=== PATIENT | male | born 1970 | race Caucasian/White ===

== ENCOUNTER 2021-06-03 23:00 | Inpatient (IN) | payer BC, SELFPAY ==
[2021-06-03 23:24] VITALS: BP 155/91; PULSE 89; RESP 22; TEMP 36.3; O2SAT 97; BMI 23.3
[2021-06-04] VITALS (26 sets, daily range): BP systolic 96–143; BP diastolic 62–90; PULSE 70–95; RESP 16–20; TEMP 36.2–37.5; O2SAT 91–100
--- NOTE | 2021-06-04 | XR_ITS ---
WS: [id number] Exam: XR hip RT 2-3V wo/w pel* [id number] Date/Time of Exam: 06/04/2021 12:00 AM Reason For Exam: FX/Right hip nail/BESS IMAGES Comparison 06/04/2021. Intraoperative AP and lateral C-arm images of the right hip are submitted for evaluation. There is internal orthopedic fixation of a comminuted intertrochanteric fracture of the right hip wit h an intramedullary haroldo and compression screw. The fracture is stabilized in satisfactory position fo r healing. XR/XR hip RT 2-3V wo/w pel* [id number] IMPRESSION: 1. Satisfactory internal orthopedic fixation involving an intertrochanteric fra cture of the right hip.
--- NOTE | 2021-06-04 | SCC_ITS ---
Procedure done: Right hip nail 58.0 seconds of fluoroscopic guidance, for a cumulative dose of 4.55 mGy, was provided to Dr. Ramos by the radiology department. C-arm images of the right hip were saved for the patient's permanent record. [facility]
--- NOTE | 2021-06-04 01:24 | XRR_ITS ---
PROCEDURE INFORMATION: Exam: XR Right Hip Exam date and time: 06/04/2021 1:35 AM Age: 50 years old Clinical indication: Injury or trauma; Fall; Blunt trauma (contusions or hematomas); Right; Patient HX: Patient fell last night. C/O extreme RT hip pain. ; Additional info: Fall R hip pain TECHNIQUE: Imaging protocol: XR Right hip. Views: 1 view hip with pelvis when performed. COMPARISON: No relevant prior studies available. FINDINGS: Bones/joints: Comminuted intertrochanteric fracture right hip. Soft tissues: Unremarkable. XR/XR hip RT 2-3V wo/w pel* [id number] IMPRESSION: Comminuted intertrochanteric fracture right hip.
[2021-06-04] MEDS: morphine 4 mg/mL SDV 1 mL IVP (01:39)
[2021-06-04] MEDS: ondansetron 2 mg/ML SDV 2 mL 4 MG IVP (01:39)
--- NOTE | 2021-06-04 02:03 | XRR_ITS ---
PROCEDURE INFORMATION: Exam: XR Chest Exam date and time: 06/04/2021 2:53 AM Age: 50 years old Clinical indication: Shortness of breath; Patient HX: SOB. Hypoxic on monitor. ; Additional info: R hip fracture TECHNIQUE: Imaging protocol: XR of the chest. Views: 1 view. COMPARISON: No relevant prior studies available. FINDINGS: Lungs: Poor inspiratory effort with some crowding of pulmonary markings and possible accentuation of the apparent heart size. Mild peribronchial thickening and/or mild perihilar linear markings consistent with bronchitis and/or viral pneumonitis and/or reactive airway disease and/or atypical pulmonary interstitial edema. Pleural spaces: Unremarkable. No pleural effusion. No pneumothorax. Heart/Mediastinum: See Lungs finding. Bones/joints: Unremarkable. Other findings: Patient rotation to the left. XR/XR chest 1V portable [id number] IMPRESSION: 1. Poor inspiratory effort with some crowding of pulmonary markings and possible accentuation of the apparent heart size. 2. Mild peribronchial thickening and/or mild perihilar linear markings consistent with bronchitis and/or viral pneumonitis and/or reactive airway disease and/or atypical pulmonary interstitial edema.
--- NOTE | 2021-06-04 02:05 | ECG_ITS ---
[facility] Test Date: 2021-06-04 Pat Name: Keron Carter Department: Room: Gender: Male Quality Head: : 1970 Requested By: Andreas Allen Order Number: [id number] Shakila MD: Terry Prince M.D. Measurements Intervals [place] Rate: 81 P: 51 NC: 133 QRS: 35 QRSD: 108 T: -58 QT: 346 QTc: 403 Interpretive Statements SINUS RHYTHM [address] DEVIATION AND MODERATE T-WAVE ABNORMALITY, CONSIDER LATERAL ISCHEMIA [-0.1+ mV T-WAVE IN I/aVL/V5/V6] ST DEVIATION AND MODERATE T-WAVE ABNORMALITY, CONSIDER INFERIOR ISCHEMIA [-0.1+ mV T-WAVE IN II/aVF] No previous ECG available for comparison Electronically Signed On 06-04-2021 9:05:31 CDT by Terry Prince M.D. [email or web address]
[2021-06-04 02:17] LABS: Basophils # 0.1 10^3/uL (0.0-0.1); Basophils % 0.4 %; Eosinophils % 0.1 %; Hematocrit 44.3 % (42.0-52.0); Hemoglobin 15.2 g/dL (11.7-16.6); Lymphocytes # 1.3 10^3/uL (0.8-4.8); Lymphocytes % 5.5 %; Mean Corpuscular HGB Conc 34.3 g/dL (30.0-36.0); Mean Corpuscular Hemoglobin 29.6 pg (28.0-34.0); Mean Corpuscular Volume 86.2 fl (80-94); Mean Platelet Volume 10.6 fL (7.4-10.4); Monocytes # 1.2 10^3/uL (0.2-0.9); Monocytes % 5.3 %; Neutrophils # 20.76 10^3/uL (1.8-7.7); Nucleated Red Blood Cells % 0 %; Platelet Count 328 10^3/cmm (130-400); Red Blood Count 5.14 10^6/uL (4.1-5.3); White Blood Count 23.6 10^3/uL (4.0-10.0)
[2021-06-04 02:27] LABS: Alanine Aminotransferase 24 U/L (0-41); Albumin Level 4.8 g/dL (3.5-5.2); Alkaline Phosphatase 90 IU/L (40-130); Anion Gap 15.2 (5-19); Aspartate Amino Transferase 20 U/L (0-40); Blood Urea Nitrogen 14 mg/dL (6-20); Calcium 9.6 mg/dL (8.5-10.5); Carbon Dioxide 26 mmol/L (22-29); Chloride 101 mmol/L (98-107); Globulin 2.7 g/dL (1.3-4.6); Glomerular Filtration Rate 176.7 mL/min (90-130); Glucose 151 mg/dL (65-115); Osmolality Calculated 289 mOsm/kg (285-295); Potassium 4.2 mmol/L (3.5-5.1); Sodium 138 mmol/L (136-145); Total Bilirubin 0.4 mg/dL (0.15-1.2); Total Protein 7.5 g/dL (6.6-8.7)
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
[2021-06-04] MEDS: HYDROmorphone 1 mg/mL INJ 1 mL IVP ×3 (03:10→07:47)
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
[2021-06-04] MEDS: pantoprazole 40 mg SDV IVP (05:05)
[2021-06-04] MEDS: dextrose 5%-sod chloride 0.9% 1,000 ML 75 ML IV ×2 (05:05→22:57)
[2021-06-04 06:17] LABS: Estmated Average Glucose 103; Hemoglobin A1C 5.2 % (4.0-6.0)
[2021-06-04 07:47] LABS: 25 Hydroxy Vitamin D 26 ng/mL (30-100); Chol HDL Ratio 3.22 mg/dL (1.0-5.00); Cholesterol 174 mg/dL (0-200); HDL Cholesterol 54 mg/dL (60-100); LDL Cholesterol Calculated 96 mg/dL (50-129); LDL HDL Ratio 1.78 RATIO (0.00-3.22); Thyroid Stimulating Hormone 1.09 uIU/mL (0.27-4.20); Triglycerides 121 mg/dL (0-150)
--- NOTE | 2021-06-04 07:55 | P.CONIM_ITS ---
Documented by User: Wayne Duque PA-C 06/04/21 08:02 Providers/Reason For Consult Consulting Physician/Specialty*: Orthopedics Reason for Consult*: Right hip pain Attending Physician: Wesley Demarco MD History of Present Illness History of Present Illness Keron Carter is a 50 year old male presents to [facility] emergency room following a fall while taking care of his vacation home. He has been dealing with Quentin Jay for the last 9 months he ambulates with a cane. States he lost his balance fell on the right hip with immediate pain and inability to move without severe sharp stabbing pain. Rest is given him some temporary relief although spasm of the muscles grade intense pain. He denies any loss of consciousness in the fall. Pain is localized to the right hip. Denies any neck or back pain. An extensive review of the patient's past medical history, surgical history, allergies, medications, family history, social history, and review of systems was completed Review of Systems Const: Denies: fever(s) Eyes: Denies: change in vision ENMT: Denies: nasal congestion Resp: Denies: dyspnea GI: Denies: abdominal pain : Denies: flank pain Musc: Denies: neck pain or back pain Neuro: Denies: dizziness Medications/Allergies Home Medications Medication Instructions Recorded Confirmed Last Taken Type verapamil 80 mg tablet 80 mg PO BID 06/04/21 06/04/21 Unknown History Allergies Allergy/AdvReac Type Severity Reaction Status Date / Time codeine Allergy ADR-Itching Verified 06/04/21 04:16 milk Allergy ALGY-Anaphy Verified 06/04/21 04:16 laxis Milk Containing Products Allergy ALGY-Anaphy Verified 06/04/21 04:16 laxis peanut Allergy ALGY-Anaphy Verified 06/04/21 04:16 laxis shellfish derived Allergy ALGY-Anaphy Verified 06/04/21 04:16 laxis tomato Allergy ALGY-Anaphy Verified 06/04/21 04:16 laxis whey Allergy ALGY-Anaphy Verified 06/04/21 04:16 laxis Current Medications Generic Name Dose Route Start Last Admin Trade Name Freq PRN Reason Stop Dose Admin Hydromorphone HCl 1 mg 06/04/21 04:16 06/04/21 07:47 Hydromorphone 1 Mg/Ml Inj 1 Ml IVP 1 mg Q2H PRN Administration PAIN Dextrose/Sodium Chloride 1,000 mls @ 75 mls/hr 06/04/21 04:16 06/04/21 05:05 Dextrose 5%-Sod Chloride 0.9% IV 75 mls/hr .[id number] ROSIE Administration Pantoprazole Sodium 40 mg 06/04/21 04:16 06/04/21 05:05 Pantoprazole 40 Mg Sdv IVP 40 mg Q24H ROSIE Administration PFSH Acute PFSH: Medical History (Updated 06/04/21 @ 08:02 by Wayne Duque PA-C) Guillain Rubio? syndrome Surgical History (Updated 06/04/21 @ 03:23 by Richard Hagen MD) No pertinent past surgical history Social History (Updated 06/04/21 @ 03:23 by Richard Hagen MD) Smoking and tobacco status: never smoked Alcohol intake: never Substance/Drug Use: never Vitals/I&O/Wt Last Vital Signs Temp 98.0 F 06/04/21 04:33 Pulse 95 06/04/21 06:00 Resp 16 06/04/21 05:03 BP 133/90 06/04/21 04:33 Pulse Ox 91 06/04/21 04:33 06/03/21 06/04/21 06/04/21 22:59 06:59 14:59 Output Total 450 / 450 Balance -450 / -450 Weight last 48 hrs Weight 145 lb Physical Exam Narrative: Patient is alert and orient x3 has good general appearance normal normal affect. Pain with palpation over the right hip. He has positive logroll on the right negative on the left. His movement of both lower extremities has been reduced due to Guillain-Rubio?. Toes are warm with good capillary refill. Dorsalis pedis and posterior tibial pulses are palpable. HENMT: COMMON NORMALS: normocephalic and atraumatic HEAD & SCALP: normocephalic and atraumatic Resp: COMMON NORMALS: normal respiratory effort Cardio: COMMON NORMALS: regular rate and regular rhythm RATE: regular rate RHYTHM: regular rhythm GI: COMMON NORMALS: non-tender : COMMON NORMALS: Yes no CVA tenderness BLADDER/KIDNEY EXAM: Yes no CVA tenderness Back/Pelvis: COMMON NORMALS: no CVA tenderness Psych: COMMON NORMALS: cooperative Data : 06/04/21 01:33 06/04/21 01:33 A&P Assessment and plan (1) Intertrochanteric fracture of right hip: Discussed open reduction internal fixation of the right hip. Discussed the risks and benefits of the procedure with him. Discussed with Dr. Ramos agrees above-stated plan. Status: Acute (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 syndrome G61.0
[2021-06-04] MEDS: sodium chloride 0.9% 1,000 ML 30 ML IV (08:56)
--- NOTE | 2021-06-04 08:57 | P.ANESASSM_ITS ---
Pre-Anesthetic Assessment Height/Weight: Height 1.68 m Weight 65.771 kg Temp Pulse Resp BP Pulse Ox 98.0 F 95 16 133/90 91 06/04/21 04:33 06/04/21 06:00 06/04/21 05:03 06/04/21 04:33 06/04/21 04:33 Operation Date: 06/04/21 10:10 Proposed Procedures p Trochanteric Femoral Nail(Right) - Coy H Rachel, DO Familial anesthetic complications: None Was Beta Faisal taken within 24 hours: N/A Was Clonidine taken within 24 hours: N/A Social No alcohol and No tobacco Exam alert, oriented x 3, clear to auscultation bilaterally and regular rate & rhythm Airway Submandibular: within normal limits Cervical ROM: within normal limits Mallampati: Class II Dentition: chipped CV/HEM Hypertension Neuropsych Neuropathy Guillain [place] Anesthetic Plan ASA status: 3 Anesthesia: Regional (specify below) (SAB) Risk of > 500 ml blood loss (7ml/kg in children): No Medications/Allergies Home Medications Medication Instructions Recorded Confirmed Last Taken Type verapamil 80 mg tablet 80 mg PO BID 06/04/21 06/04/21 Unknown History Allergies Allergy/AdvReac Type Severity Reaction Status Date / Time codeine Allergy ADR-Itching Verified 06/04/21 04:16 milk Allergy ALGY-Anaphy Verified 06/04/21 04:16 laxis Milk Containing Products Allergy ALGY-Anaphy Verified 06/04/21 04:16 laxis peanut Allergy ALGY-Anaphy Verified 06/04/21 04:16 laxis shellfish derived Allergy ALGY-Anaphy Verified 06/04/21 04:16 laxis tomato Allergy ALGY-Anaphy Verified 06/04/21 04:16 laxis whey Allergy ALGY-Anaphy Verified 06/04/21 04:16 laxis Current Medications Generic Name Dose Route Start Last Admin Trade Name Freq PRN Reason Stop Dose Admin Hydromorphone HCl 1 mg 06/04/21 04:16 06/04/21 07:47 Hydromorphone 1 Mg/Ml Inj 1 Ml IVP 1 mg Q2H PRN Administration PAIN Dextrose/Sodium Chloride 1,000 mls @ 75 mls/hr 06/04/21 04:16 06/04/21 05:05 Dextrose 5%-Sod Chloride 0.9% IV 75 mls/hr .[id number] ROSIE Administration Sodium Chloride 1,000 mls @ 30 mls/hr 06/04/21 08:45 06/04/21 08:56 Sodium Chloride 0.9% IV 06/05/21 08:44 30 mls/hr .Q24H ROSIE Administration Pantoprazole Sodium 40 mg 06/04/21 04:16 06/04/21 05:05 Pantoprazole 40 Mg Sdv IVP 40 mg Q24H ROSIE Administration PFSH Anesthesia Medical History (Updated 06/04/21 @ 08:02 by Wayne Duque PA-C) Guillain Rubio? syndrome Surgical History (Updated 06/04/21 @ 03:23 by Richard Hagen MD) No pertinent past surgical history Social History (Updated 06/04/21 @ 03:23 by Richard Hagen MD) Smoking and tobacco status: never smoked Alcohol intake: never Substance/Drug Use: never Data Anesthesia : 06/04/21 01:33 06/04/21 01:33 Short CBC 06/04/21 Range/Units 01:33 WBC 23.6 H (4.0-10.0) 10^3/uL Hgb 15.2 (11.7-16.6) g/dL Hct 44.3 (42.0-52.0) % MCV 86.2 (80-94) fl Plt Count 328 (130-400) 10^3/cmm Neut % (Auto) 88.0 % Neut # (Auto) 20.76 H (1.8-7.7) 10^3/uL BMP 06/04/21 01:33 Sodium 138 Potassium 4.2 Chloride 101 Carbon Dioxide 26 BUN 14 Creatinine 0.5 L Glucose 151 H Calcium 9.6 Liver Function 06/04/21 Range/Units 01:33 Total Bilirubin 0.4 (0.15-1.2) mg/dL AST 20 (0-40) U/L ALT 24 (0-41) U/L Alkaline Phosphatase 90 (40-130) IU/L Albumin 4.8 (3.5-5.2) g/dL Cardiac Studies: No Data to Display
--- NOTE | 2021-06-04 11:11 | PM.OP ---
Operative Report Date of procedure: June 04, 2021 Pre-op diagnosis: Right intertrochanteric hip fracture Post-op diagnosis: same Procedure done: Right hip nail Surgeon: Coy Ramos Agricultural Engineering Technologist: Wayne Duque Estimated blood loss (mL): 100 Procedure: Right hip nail Patient is brought to the operative suite after undergoing anesthesia with a spinal. He was positioned on the fracture table. All areas impingement well-padded. Traction was applied through the [place] table. AP lateral fluoroscopy ensured the fracture was adequately reduced. Patient was then prepped and draped in normal sterile fashion. Skin incision is made proximal to greater trochanter. Starting pin was inserted. Opening reamer was inserted. A size 10 nail was inserted. 25 degree angle. The wire was inserted followed by the reamer followed by the screw. The locking cap was placed proximally. Then the distal locking screw was placed. The distal locking screw was a 35. In the lag screw was a 95. AP lateral fluoroscopy ensured that the fracture and hardware improved position. Wound was irrigated and closed with Vicryl and suni. Sterile dressings were applied and patient was transferred to the PACU in stable condition.
--- NOTE | 2021-06-04 11:49 | ANE.PACU2 ---
Inpatient post-anesthesia follow up: Airway intact: Yes Vital signs: Temperature 97.5 F Pulse Rate 70 Respiratory Rate 18 Blood Pressure 108/72 Pulse Oximetry 98 Oxygen Delivery Me thod Room Air Oxygen Flow Rate 6 Fraction of Inspir ed Oxygen Hydration adequate: Yes Nausea and vomiting: No Pain level: 1 Mental status: Baseline
--- NOTE | 2021-06-04 11:51 | PC.CHAP ---
Pastoral Care Encounter/Spiritual Assessment Type of Contact [] Declined retail director visit [] Patient/Family/Request visit [] Outpatient visit [] Follow-up visit [] Physician referral [] Code/Alert [X] Routine visit [] Staff referral [] Actively dying [] Patient sleeping [] Family support [] [X] Out of room [] Palliative care [] [] Receiving care in room [] Pre-surgical visit [] Trauma [] Long length of stay [] ICU visit [] Other: Relational/Emotional Strength [] Patient feels connected with others/family/visitors/staff [] Distress [] Loneliness/isolation [] Abandonment Spirituality of Patient [] Person of Liliya [] Attends Mandaeism of their Liliya [] Believes in Prayer [] Reads Bible or Baptist materials [] There are Spiritual issues to be addressed Bulb Weeder Interventions [] Prayer [] Active listening [] Non-anxious presence [] Spiritual/emotional support [] Crisis/trauma care [] Spiritual counseling [] Bereavement support [] Provided bereavement packet [] Provided Bible/devotional materials [] Provided toy/stuffed animal, coloring book to patient or family member [] Provided Communion [] Anointing/[place] [] Salvation [] Completed spiritual assessment [] Other: Impact on Illness or Injury [] Angry [] Fearful [] Anxious [] Often cries [] Exhaustion [] Unable to work [] Unable to attend gnosticist [] Unable to walk/stand [] Unable to read [] Unable to drive [] Unable to eat/drink [] Unable to sleep [] Unable to be with family [] Patient intubated [] Other: Summary Time spent with patient
[2021-06-04] MEDS: HYDROcodone-acetaminophen 5-325 mg Tablet PO ×2 (13:32→20:25)
[2021-06-04] MEDS: cyclobenzaprine 10 mg Tablet 5 MG PO ×2 (14:58→20:24)
[2021-06-04] MEDS: HYDROcodone-acetaminophen 10-325 mg Tablet 2 TAB PO (16:12)
[2021-06-04] MEDS: docusate sodium 100 mg Capsule PO (18:13)
[2021-06-04] MEDS: enoxaparin 40 mg/0.4 mL Syringe SUBCUT (22:57)
[2021-06-05] VITALS (10 sets, daily range): BP systolic 127–143; BP diastolic 79–93; PULSE 80–104; RESP 16–20; TEMP 36.8–37.1; O2SAT 91–96
[2021-06-05] MEDS: HYDROcodone-acetaminophen 5-325 mg Tablet PO ×6 (00:09→21:56)
[2021-06-05] MEDS: pantoprazole 40 mg SDV IVP (05:03)
[2021-06-05 05:05] LABS: Basophils # 0.1 10^3/uL (0.0-0.1); Basophils % 0.6 %; Eosinophils # 0.1 10^3/uL (0.0-0.8); Eosinophils % 1.2 %; Hematocrit 38.8 % (42.0-52.0); Lymphocytes # 1.9 10^3/uL (0.8-4.8); Mean Corpuscular HGB Conc 33.5 g/dL (30.0-36.0); Mean Corpuscular Hemoglobin 29.3 pg (28.0-34.0); Mean Corpuscular Volume 87.6 fl (80-94); Mean Platelet Volume 10.4 fL (7.4-10.4); Monocytes # 1.3 10^3/uL (0.2-0.9); Monocytes % 10.5 %; Neutrophils # 8.44 10^3/uL (1.8-7.7); Neutrophils % 71.1 %; Nucleated Red Blood Cells % 0 %; Platelet Count 235 10^3/cmm (130-400); Red Blood Count 4.43 10^6/uL (4.1-5.3); Red Cell Distribution Width 13.2 % (12.1-15.1); White Blood Count 11.9 10^3/uL (4.0-10.0)
[2021-06-05 05:28] LABS: Alanine Aminotransferase 18 U/L (0-41); Albumin Level 3.6 g/dL (3.5-5.2); Alkaline Phosphatase 69 IU/L (40-130); Anion Gap 9.8 (5-19); Aspartate Amino Transferase 14 U/L (0-40); Blood Urea Nitrogen 7 mg/dL (6-20); Calcium 8.3 mg/dL (8.5-10.5); Carbon Dioxide 25 mmol/L (22-29); Chloride 107 mmol/L (98-107); Globulin 2.4 g/dL (1.3-4.6); Glomerular Filtration Rate 176.7 mL/min (90-130); Glucose 116 mg/dL (65-115); Osmolality Calculated 285 mOsm/kg (285-295); Phosphorus 2.9 mg/dL (2.5-4.5); Potassium 3.8 mmol/L (3.5-5.1); Sodium 138 mmol/L (136-145); Total Bilirubin 0.8 mg/dL (0.15-1.2)
--- NOTE | 2021-06-05 06:52 | PM.PN ---
Subjective Subjective: POD 1 Patient resting comfortably. Pain controlled with hydrocodone. Physical therapy had evaluated yesterday for gait training to the right lower extremity. Vitals/I&O/Wt Last Vital Signs Temp 98.7 F 06/05/21 04:00 Pulse 80 06/05/21 05:22 Resp 17 06/05/21 04:00 BP 127/79 06/05/21 04:00 Pulse Ox 91 06/05/21 04:00 06/04/21 06/04/21 06/05/21 14:59 22:59 06:59 Intake Total 235 / 235 1580 / 1815 Output Total 100 / 100 525 / 625 950 / 1575 Balance 135 / 135 1055 / 1190 -950 / 240 Weight last 48 hrs Weight 145 lb Physical Exam Narrative: Patient is alert and orient x3 has good general appearance normal normal affect. Hip incision is clean and dry. Decreased motor strength lower extremities from Guillain-Rubio?. Skin is clear warm, feet are warm with good cap refill in all digits. Decreased sensation to light touch was present prior to surgery from Guillain-Rubio?, calves are supple, no medial thigh tenderness, negative Homans' sign. No palpable edema peripherally. Data : 06/05/21 04:52 06/05/21 04:52 A&P Assessment and plan (1) Intertrochanteric fracture of right hip: Weight-bear as tolerated to the right lower extremity. Continue gait training with physical therapy. Downsize the dressing with an island dressing preferably Silverlon. Patient would like to transfer care back to his home with his primary care and suni could be removed in 2 weeks. We will see him back in 4 weeks for new radiographs of the right hip. 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
[2021-06-05] MEDS: HYDROmorphone 1 mg/mL INJ 1 mL 0.4 MG IVP (08:57)
[2021-06-05] MEDS: docusate sodium 100 mg Capsule PO ×2 (08:58→18:12)
--- NOTE | 2021-06-05 10:29 | PM.PN ---
Subjective Subjective: Status post patient Patient was complaining excruciating pain he was out of bed to chair I will give him Dilaudid 0.4 mg IV push Escalate his opioid regimen add bowel regimen He does not want to go to any care home or rehab Plan to continue PT evaluation on daily basis, discharge in next 48 hours to home once ready Vitals/I&O/Wt Last Vital Signs Temp 98.2 F 06/05/21 07:55 Pulse 101 H 06/05/21 07:55 Resp 20 H 06/05/21 08:57 BP 143/93 06/05/21 07:55 Pulse Ox 94 06/05/21 07:55 06/04/21 06/05/21 06/05/21 22:59 06:59 14:59 Intake Total 1580 / 1815 180 / 180 Output Total 525 / 625 950 / 1575 Balance 1055 / 1190 -950 / 240 180 / 180 Weight last 48 hrs Weight 65.771 kg Physical Exam Narrative: Patient was sitting in a chair Complaining of pain in his right leg Euvolemic Nonfocal neuro exam no focal deficit He does have bilateral extremity weakness, right greater than left Resting tremors S1, S2 Nonfocal neuro exam No audible stridor or wheezing Satting well on room air Data : 06/05/21 04:52 06/05/21 04:52 A&P Assessment and plan (1) Intertrochanteric fracture of right hip: Status: Acute (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 (3) Hip fracture, right: Status: Acute Qualifiers: Encounter type: initial encounter Fracture type: closed Qualified Code(s): S72.001A - Fracture of unspecified part of neck of right femur, initial encounter for closed fracture Plan Right hip fracture status post intervention Postop day 1 No postoperative complication Escalate opioids to Dilaudid for now Add bowel regimen Daily PT evaluation Does not want to go to care home or rehab Plan to send him home with home health services He does use a cane for ambulation, a cane for ambulation, might benefit from a walker at this time Will need DVT prophylaxis for at least 2 weeks at the time of discharge DVT prophylaxis at the time of discharge 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
[2021-06-05] MEDS: HYDROmorphone 1 mg/mL INJ 1 mL 0.2 MG IVP (12:52)
[2021-06-05] MEDS: sennosides-docusate Tablet 1 TAB PO (18:12)
[2021-06-05] MEDS: enoxaparin 40 mg/0.4 mL Syringe SUBCUT (21:57)
[2021-06-06] VITALS (9 sets, daily range): BP systolic 123–147; BP diastolic 67–91; PULSE 62–106; RESP 17–18; TEMP 36.3–37.6; O2SAT 95–98
[2021-06-06] MEDS: cyclobenzaprine 10 mg Tablet 5 MG PO ×2 (01:07→21:29)
[2021-06-06] MEDS: HYDROcodone-acetaminophen 5-325 mg Tablet PO ×5 (03:52→21:29)
[2021-06-06] MEDS: pantoprazole 40 mg SDV IVP (03:53)
[2021-06-06 06:20] LABS: Basophils # 0.1 10^3/uL (0.0-0.1); Basophils % 0.6 %; Eosinophils # 0.3 10^3/uL (0.0-0.8); Eosinophils % 1.9 %; Hematocrit 41.3 % (42.0-52.0); Hemoglobin 13.8 g/dL (11.7-16.6); Lymphocytes # 1.4 10^3/uL (0.8-4.8); Lymphocytes % 10.7 %; Mean Corpuscular HGB Conc 33.4 g/dL (30.0-36.0); Mean Corpuscular Hemoglobin 30.3 pg (28.0-34.0); Mean Corpuscular Volume 90.6 fl (80-94); Mean Platelet Volume 10.1 fL (7.4-10.4); Monocytes # 1.3 10^3/uL (0.2-0.9); Monocytes % 9.6 %; Neutrophils # 10.35 10^3/uL (1.8-7.7); Neutrophils % 76.8 %; Nucleated Red Blood Cells % 0 %; Platelet Count 247 10^3/cmm (130-400); Red Blood Count 4.56 10^6/uL (4.1-5.3); Red Cell Distribution Width 13.1 % (12.1-15.1); White Blood Count 13.5 10^3/uL (4.0-10.0)
[2021-06-06 06:29] LABS: Alanine Aminotransferase 20 U/L (0-41); Albumin Level 3.3 g/dL (3.5-5.2); Alkaline Phosphatase 85 IU/L (40-130); Aspartate Amino Transferase 18 U/L (0-40); Blood Urea Nitrogen 7 mg/dL (6-20); Calcium 8.6 mg/dL (8.5-10.5); Carbon Dioxide 26 mmol/L (22-29); Chloride 102 mmol/L (98-107); Globulin 3.5 g/dL (1.3-4.6); Glomerular Filtration Rate 176.7 mL/min (90-130); Glucose 108 mg/dL (65-115); Osmolality Calculated 283 mOsm/kg (285-295); Sodium 137 mmol/L (136-145); Total Bilirubin 0.9 mg/dL (0.15-1.2); Total Protein 6.8 g/dL (6.6-8.7)
--- NOTE | 2021-06-06 07:03 | P.PN_ITS ---
Subjective Subjective: POD 2 Patient reports continued right hip pain. Having difficult time mobilizing with physical therapy due to the pain. Denies any shortness of breath or chest pain. Vitals/I&O/Wt Last Vital Signs Temp 99.6 F 06/06/21 04:00 Pulse 96 06/06/21 06:00 Resp 17 06/06/21 04:00 BP 145/84 06/06/21 04:00 Pulse Ox 97 06/06/21 04:00 06/05/21 06/06/21 06/06/21 22:59 06:59 14:59 Intake Total 240 / 1641.25 Output Total 900 / 1300 1075 / 2375 Balance -660 / 341.25 -1075 / -733.75 Physical Exam Narrative: Patient is alert a nd orient x3 has g ood general appear ance normal normal affect.? Hip inci gifty is clean and dry.? Decreased mo tor strength? lowe r extremities from [facility]?. ? Skin is clear war m, feet are warm w ith good cap refil l in all digits.? Decreased sensatio n to light touch w as present prior t o surgery from [facility]?,? calv es are supple,? no medial thigh tend erness, negative H omans' sign.? No p alpable edema jasper pherally. Data : 06/06/21 05:43 06/06/21 05:43 A&P Assessment and plan (1) Intertrochanteric fracture of right hip: Discussed with the patient that we will have a social service agency director consult for placement. Continue to work with physical therapy. Perform a dressing change today with an island Silverlon dressing. Ready for discharge when placement found. Status: Acute Attestations Medical Necessity Statement*: defer to medical team Coding Level of Care Code Acute Telemetry Monitor for Antonella Pickard Diagnoses Intertrochanteric fracture of right hip S72.141A
[2021-06-06] MEDS: sennosides-docusate Tablet 1 TAB PO ×2 (08:06→17:06)
[2021-06-06] MEDS: docusate sodium 100 mg Capsule PO ×2 (08:06→17:06)
[2021-06-06] MEDS: HYDROmorphone 1 mg/mL INJ 1 mL 0.2 MG IVP (10:27)
--- NOTE | 2021-06-06 11:55 | P.PN_ITS ---
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 Escalate opioids Vitals/I&O/Wt Last Vital Signs Temp 97.4 F L 06/06/21 11:49 Pulse 95 06/06/21 11:49 Resp 18 06/06/21 11:49 BP 147/91 06/06/21 11:49 Pulse Ox 95 06/06/21 11:49 06/05/21 06/06/21 06/06/21 22:59 06:59 14:59 Intake Total 240 / 1641.25 Output Total 900 / 1300 1075 / 2375 600 / 600 Balance -660 / 341.25 -1075 / -733.75 -600 / -600 Physical Exam Narrative: Patient was in distress because of right hip pain Weakness of bilateral lower extremities Nonfocal neuro exam otherwise Resting tremors Saturating well on room air Abdomen soft Looks euvolemic No vascular compromise of right leg noted Data : 06/06/21 05:43 06/06/21 05:43 A&P Assessment and plan (1) Intertrochanteric fracture of right hip: Status: Acute (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 (3) Hip fracture, right: Status: Acute Qualifiers: Encounter type: initial encounter Fracture type: closed Qualified Code(s): S72.001A - Fracture of unspecified part of neck of right femur, initial encounter for closed fracture Plan Today our plan is to escalate opioids to keep his pain under control, add bowel regimen transportation solutions manager updated that patient has requested detention/rehab No postop complications He is afebrile Blood pressure is stable Saturating well on room air Hemoglobin 13 DVT prophylaxis Lovenox 40 mg daily which I will change to 30 mg every 12 hours Attestations Medical Necessity Statement*: Awaiting placement Time Spent in Patient Care: 20mins Coding Level of Care Code Acute Sales Record Clerk for Antonella Pickard Diagnoses Intertrochanteric fracture of right hip 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
--- NOTE | 2021-06-06 12:07 | XR_ITS ---
WS: [id number] Exam: XR hip RT 1V wo/w pel [id number] Date/Time of Exam: 06/06/2021 12:27 PM Reason For Exam: hip Pain # Compared to intraoperative C-arm images 06/04/2021. There is internal orthopedic fixation of an intertrochanteric fracture of the right hip with an intra medullary haroldo and femoral neck screw. Surgical skin clips are noted laterally. Postoperative changes in the adjacent soft tissues. XR/XR hip RT 1V wo/w pel [id number] IMPRESSION: 1. ORIF of an intertrochanteric fracture of the right hip.
[2021-06-06 13:25] LABS: D Dimer 1.63 ug/mIFEU (0-0.59)
[2021-06-07] VITALS (11 sets, daily range): BP systolic 119–147; BP diastolic 79–107; PULSE 75–114; RESP 13–18; TEMP 36.5–37.1; O2SAT 95–98
[2021-06-07] MEDS: HYDROcodone-acetaminophen 5-325 mg Tablet PO ×6 (02:03→23:38)
[2021-06-07] MEDS: pantoprazole 40 mg SDV IVP (05:59)
[2021-06-07 06:18] LABS: Basophils # 0.1 10^3/uL (0.0-0.1); Basophils % 0.7 %; Eosinophils # 0.3 10^3/uL (0.0-0.8); Eosinophils % 2.6 %; Hematocrit 43.3 % (42.0-52.0); Hemoglobin 14.3 g/dL (11.7-16.6); Lymphocytes # 2.2 10^3/uL (0.8-4.8); Lymphocytes % 21.3 %; Mean Corpuscular Volume 87.8 fl (80-94); Monocytes # 1.3 10^3/uL (0.2-0.9); Monocytes % 12.2 %; Neutrophils % 62.5 %; Nucleated Red Blood Cells % 0 %; Platelet Count 294 10^3/cmm (130-400); Red Blood Count 4.93 10^6/uL (4.1-5.3); Red Cell Distribution Width 12.8 % (12.1-15.1); White Blood Count 10.5 10^3/uL (4.0-10.0)
--- NOTE | 2021-06-07 07:20 | USCV_ITS ---
Keron Carter Age: 50 Gender: M : 1970 Exam Date: 06/07/2021 09:26 Ordering Phys: Wesley Demarco MD Technologist: VINCENZO Exam Location: [facility] [place] Indication: BLE SWELLING HISTORY: Lower extremity swelling. PROCEDURES: Venous duplex imaging was performed in bilateral lower extremities. The following venous structures were evaluated: common femoral vein, profunda vein, proximal portion of the greater saphenous vein, superficial femoral vein, and the popliteal vein. In addition, the posterior tibial and peroneal trunk were evaluated. Serial compression, augmentation maneuvers, and spectral Doppler flow evaluation were performed. FINDINGS: Normal 2-D Doppler and augmentation and compressibility throughout the lower extremity venous structures. Additional imaging through the proximal calf veins also reveals no thrombus. Limited evaluation of the greater saphenous vein is patent with no thrombus. CONCLUSIONS No DVT bilateral lower extremities. Dr. Carolyn Rome DO (Electronically Signed) Final Date: 07 June 2021 11:04 S
--- NOTE | 2021-06-07 08:06 | P.PN_ITS ---
Subjective Subjective: POD 3 Patient reports co ntinued right hip pain.? Having diff icult time mobiliz ing with physical therapy due to the pain.? Denies any shortness of malu th or chest pain. Vitals/I&O/Wt Last Vital Signs Temp 97.7 F 06/07/21 04:00 Pulse 99 06/07/21 06:00 Resp 17 06/07/21 04:00 BP 119/79 06/07/21 04:00 Pulse Ox 96 06/07/21 04:00 06/06/21 06/07/21 06/07/21 22:59 06:59 14:59 Intake Total 240 / 240 Output Total 425 / 1025 400 / 1425 Balance -185 / -785 -400 / -1185 Physical Exam Narrative: Patient is alert and orient x3 has good general appearance normal normal affect. Hip incision remains clean and dry. There is no signs of erythema or drainage no signs of infection. Decreased lower extremity motor strength due to Guillain-Rubio?. Skin is clear warm, feet are warm with good cap refill in all digits. Decreasedsensation to light touch. Calves are supple, no medial thigh tenderness, negative Homans' sign. No palpable edema peripherally. Data : 06/07/21 05:45 06/06/21 05:43 A&P Assessment and plan (1) Intertrochanteric fracture of right hip: Continue to mobilize with physical therapy. Continue incentive spirometry for pulmonary toilet. Attempting to manage pain. Ready for discharge home/SNF when patient has better pain control and medically stable. 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
[2021-06-07] MEDS: sennosides-docusate Tablet 1 TAB PO ×2 (09:15→17:07)
[2021-06-07] MEDS: docusate sodium 100 mg Capsule PO ×2 (09:15→17:07)
--- NOTE | 2021-06-07 11:52 | PM.PN ---
Subjective Subjective: D-dimer was high however no signs of DVT on venous Doppler, he is not hypoxic or tachycardic Blood pressure stable, hemoglobin 14.3 He is able to bear weight on his right leg able to use a walker He is hopeful that he might be able to go home if he keeps improving during his hospitalization and avoid rehab Hip x-ray did not show any acute events Vitals/I&O/Wt Last Vital Signs Temp 98.6 F 06/07/21 08:00 Pulse 99 06/07/21 08:00 Resp 15 06/07/21 08:00 BP 130/87 06/07/21 08:00 Pulse Ox 96 06/07/21 08:00 06/06/21 06/07/21 06/07/21 22:59 06:59 14:59 Intake Total 240 / 240 Output Total 425 / 1025 400 / 1425 Balance -185 / -785 -400 / -1185 Physical Exam Narrative: Patient seems to be in less pain as compared to yesterday Able to bear weight on his right leg with the help of a walker he can ambulate Nonfocal neuro exam Looks euvolemic Eating breakfast S1, S2 Mild edema of legs noted Clean dressing no active drainage Data : 06/07/21 05:45 06/06/21 05:43 A&P Assessment and plan (1) Intertrochanteric fracture of right hip: Status: Acute (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 (3) Hip fracture, right: Status: Acute Qualifiers: Encounter type: initial encounter Fracture type: closed Qualified Code(s): S72.001A - Fracture of unspecified part of neck of right femur, initial encounter for closed fracture Plan Right hip fracture status post ORIF Patient has been on opioids, TENs With help of PT, a walker he is able to put some weight on his right leg He is hopeful that next 24 hours he will be able to bear weight on the right leg and might able to go home and avoid rehab inpatient placement in [place] Continue physical therapy for now D-dimer 1.6, no hypoxia or tachycardia, no signs of DVT I pressure will stay low to get CTA chest if needed Continue regular diet Attestations Medical Necessity Statement*: Discharge in next 30 hours Time Spent in Patient Care: 20min Coding Level of Care Code Acute Buyer Internship for Antonella Pickard Diagnoses Intertrochanteric fracture of right hip 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
--- NOTE | 2021-06-07 15:43 | PC.NURSE ---
Patient worked with PT this shift and reported to be doing much better. Worked with PT and did a bed bath. Vitals stable. Pain medications given -every 4 hours, patient rating pain at 7-8. Will continue to monitor and salesperson yard goods report to night nurse.
--- NOTE | 2021-06-07 16:05 | XRR_ITS ---
PROCEDURE INFORMATION: Exam: XR Right Femur Exam date and time: 06/07/2021 4:27 PM Age: 50 years old Clinical indication: Pain; Thigh; Right; Prior surgery; Surgery date: 3-7 days post-operative; Surgery type: RT hip nail; Additional info: Pain, will need to be portable as patient having uncontrolled pain TECHNIQUE: Imaging protocol: XR Right femur. Views: 2 views. COMPARISON: CR XR hip RT 1V wo/w pel [id number] 06/06/2021 12:38 PM FINDINGS: Bones/joints: Recently placed right hip fixation device in expected positioning traversing an intertrochanteric right hip fracture. Soft tissues: Skin suni with gas and swelling along the right hip consistent with recent surgical procedure. XR/XR femur RT min 2V* [id number] IMPRESSION: Recently placed right hip fixation device in expected positioning traversing an intertrochanteric right hip fracture.
[2021-06-07] MEDS: enoxaparin 40 mg/0.4 mL Syringe SUBCUT (17:07)
[2021-06-07] MEDS: cyclobenzaprine 10 mg Tablet 5 MG PO (23:38)
[2021-06-08] VITALS (8 sets, daily range): BP systolic 125–150; BP diastolic 73–115; PULSE 83–118; RESP 13–18; TEMP 36.4–37; O2SAT 94–98
--- NOTE | 2021-06-08 01:07 | PC.NURSE ---
i reported high pulse 105 to nurse
[2021-06-08] MEDS: HYDROcodone-acetaminophen 5-325 mg Tablet PO ×5 (03:24→21:07)
--- NOTE | 2021-06-08 06:49 | PM.PN ---
Subjective Subjective: POD 4 Patient resting comfortably. States the pain is better controlled. Physical therapy worked with him yesterday he felt more stable on his feet. He is not want to go to a rehab facility wants to go home. Vitals/I&O/Wt Last Vital Signs Temp 98 F 06/08/21 04:00 Pulse 83 06/08/21 05:09 Resp 16 06/08/21 04:00 BP 125/91 06/08/21 04:00 Pulse Ox 95 06/08/21 04:00 06/07/21 06/07/21 06/08/21 14:59 22:59 06:59 Intake Total 360 / 360 Output Total 1225 / 1225 600 / 1825 Balance -1225 / -1225 -240 / -1465 Physical Exam Narrative: Patient is alert and orient x3 has good general appearance normal normal affect.? Hip incision remains clean and dry. ? There is no signs of erythema or drainage no signs of infection.? Decreased lower extremity motor strength due to Guillain-Rubio?.? Skin is clear warm, feet are warm with good cap refill in all digits.? Decreasedsensation to light touch.? Calves are supple,? no medial thigh tenderness, negative Homans' sign.? No palpable edema peripherally. Data : 06/07/21 05:45 06/06/21 05:43 A&P Assessment and plan (1) Intertrochanteric fracture of right hip: Radiographs of the right hip shows the hip nail to be in excellent position no loosening of the hardware. All appears in good alignment. There are suni present in the skin. Will work for discharge home today. With home health care as an option for the patient. Have the suni removed in 2 weeks in the office. Have the dressings changed prior to discharge home. Continue incentive spirometry at home. Call if there is problems. Otherwise see him back in the office in 2 weeks for staple removal. 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
--- NOTE | 2021-06-08 07:27 | CT_ITS ---
WS: [id number] CT CHEST ANGIOGRAPHY WITH REFORMATS HISTORY: TACHYCARDIA, dimer high, TECHNIQUE: Contiguous axial images are obtained through the chest during arterial injection of intrav enous contrast. Images are reconstructed to evaluate the pulmonary arteries. MIP imaging also reviewe d. All CT scans at [facility] use at least one of these dose optimization techniques: automat ed exposure control; mA and/or kV adjustment per patient size (includes targeted exams where dose is matched to clinical indication); or iterative reconstruction. CONTRAST: Omnipaque 350; 67 mL IV. DLP: 569.53 mGy.cm COMPARISON: None available. Excellent opacification of the pulmonary arteries. There are no filling defects. Pulmonary artery siz e is normal. Mild atherosclerotic changes within the thoracic aorta. No aneurysm. No dissection. Card iac size is normal. No pericardial or pleural effusions. There is a nodule measuring 7 mm along the inferior LEFT major fissure extending into the LEFT upper lobe. There are additional smaller areas of nodularity along the fissure. This will need to be furthe r evaluated. Subsegmental atelectasis at the RIGHT lung base. No additional nodules are identified. R IGHT suprahilar lymph node measures 11 mm. There are smaller bilateral hilar lymph nodes. Small hiatal hernia. Liver is moderately enlarged. Spleen is normal size at 10.6 cm. No adrenal mass. Pancreas is negative. Slight increase in the thoracic kyphosis. CT/CT angio chest PE protcl [id number] IMPRESSION: 1. No pulmonary embolism. 2. 7 mm pulmonary nodule abuts the inferior LEFT major fissure and extends int o the upper lobe. There are additional smaller benign appearing nodules along t he fissure. The largest 7 mm nodule needs further evaluation. Recommend follow- up chest CT in 3-4 months with IV contrast to document stability. 3. Normal size heart.
[2021-06-08] MEDS: sennosides-docusate Tablet 1 TAB PO ×2 (08:05→17:05)
[2021-06-08] MEDS: docusate sodium 100 mg Capsule PO ×2 (08:06→17:05)
[2021-06-08] MEDS: pantoprazole DR 40 mg Tablet PO (08:06)
[2021-06-08] MEDS: iohexol 350 mg/mL 100 mL Btl IV (08:31)
--- NOTE | 2021-06-08 08:55 | PM.PN ---
Subjective Subjective: This morning patient was able to get out of bed and sit in a wheelchair with the help of walker, I requested CTA chest to rule out PE he has been sinus tachycardic, considering high D-dimer I would like to rule out PE, I have notified his was upset because he received dinner tray with chicken which had a lot of cream and he has milk allergies, I have escalated this matter to informed charge nurse, nurse toy parts former supervisor and involve dietitian's the first time I am hearing about his dietary restrictions, patient himself and then will complain about food, there has been multiple meetings with the dietitian however diet order was not changed, today I have changed his diet order to lactose-free/lactose intolerant diet His will not be able to drive today because of bad weather conditions, plan to discharge him tomorrow home he does have wheelchair, a walker, he will need outpatient PT prescription with [facility] Vitals/I&O/Wt Last Vital Signs Temp 97.6 F 06/08/21 07:16 Pulse 107 H 06/08/21 07:16 Resp 13 06/08/21 07:16 BP 141/73 06/08/21 07:16 Pulse Ox 95 06/08/21 07:16 06/07/21 06/08/21 06/08/21 22:59 06:59 14:59 Intake Total 360 / 360 Output Total 1225 / 1225 600 / 1825 Balance -1225 / -1225 -240 / -1465 Physical Exam Narrative: Resting tremors, patient appears anxious Euvolemic Sinus tachycardia noted Mild swelling of right foot noted Dressing has been changed twice daily basis, at the time of evaluation it is not soaked with blood anymore Mild edema around surgical site EOMI, PERRLA No new focal deficits Abdomen is soft When he tries to ambulate he is able to do so however with difficulty and a lot of facial grimacing Data : 06/07/21 05:45 06/06/21 05:43 A&P Assessment and plan (1) Intertrochanteric fracture of right hip: Status: Acute (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 (3) Hip fracture, right: Status: Acute Qualifiers: Encounter type: initial encounter Fracture type: closed Qualified Code(s): S72.001A - Fracture of unspecified part of neck of right femur, initial encounter for closed fracture (4) Right leg swelling: Status: Acute (5) Sinus tachycardia: Status: Acute Plan Rt Hip fracture status post intervention Milk intolerant: Change diet orders to lactose-free diet I have informed charge nurse and nursing toy parts former supervisor updated Right leg swelling high D-dimer sinus tachycardia no signs of DVT, rule out PE, requested CTA chest today I will continue IV fluids to see if better hydration would reduce his heart rate to normal Outpatient physical therapy needed with [facility] He will need DVT prophylaxis for at least 2 weeks with Eliquis 2.5 mg twice daily if there is no clot Bleeding around the surgical site however hemoglobin has not dropped significantly, hemodynamically stable We will repeat CBC tomorrow morning My plan is to discharge him tomorrow if he stays clinically stable He has IV opioids for breakthrough pain, continue p.o. 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
[2021-06-08] MEDS: sodium chloride 0.9% 1,000 ML 75 ML IV (10:41)
[2021-06-08] MEDS: hyDRALAzine 20 mg/mL INJ 1 mL 5 MG IVP (17:05)
--- NOTE | 2021-06-08 17:36 | PC.NURSE ---
Patient went for CT early this AM to rule out PE. Patients blood pressure and heart rate have been high, meds adjusted to help lower. Dressing change done. Pain medications given around every hour upon request. PT worked with patient today. Adequate urine output, no bowel movement. Patient was having multiple issues with meals and receiving food that he was allergic to, dietary notified, changes made. Patient is set to discharge tomorrow. Will continue to monitor and give report to night nurse.
[2021-06-08] MEDS: enoxaparin 40 mg/0.4 mL Syringe SUBCUT (18:07)
--- NOTE | 2021-06-08 20:09 | PC.NURSE ---
i reported high pulse 118 to nurse
[2021-06-08] MEDS: cyclobenzaprine 10 mg Tablet 5 MG PO (23:43)
[2021-06-09] VITALS: BP 134/86; PULSE 110; RESP 18; TEMP 36.6; O2SAT 93
--- NOTE | 2021-06-09 00:40 | PC.NURSE ---
i reported high pulse 110 to nurse
[2021-06-09] MEDS: HYDROcodone-acetaminophen 5-325 mg Tablet PO ×3 (01:32→10:28)
[2021-06-09 04:00] VITALS: BP 130/80; PULSE 104; RESP 18; O2SAT 91
[2021-06-09 05:37] LABS: Basophils # 0.1 10^3/uL (0.0-0.1); Basophils % 0.5 %; Eosinophils # 0.3 10^3/uL (0.0-0.8); Eosinophils % 2.5 %; Hematocrit 44.8 % (42.0-52.0); Hemoglobin 14.2 g/dL (11.7-16.6); Lymphocytes # 2.3 10^3/uL (0.8-4.8); Lymphocytes % 20.6 %; Mean Corpuscular HGB Conc 31.7 g/dL (30.0-36.0); Mean Corpuscular Hemoglobin 29.5 pg (28.0-34.0); Mean Corpuscular Volume 93.1 fl (80-94); Mean Platelet Volume 10.1 fL (7.4-10.4); Monocytes # 1.4 10^3/uL (0.2-0.9); Monocytes % 12.1 %; Neutrophils # 7.14 10^3/uL (1.8-7.7); Neutrophils % 63.5 %; Nucleated Red Blood Cells % 0 %; Platelet Count 316 10^3/cmm (130-400); Red Blood Count 4.81 10^6/uL (4.1-5.3); Red Cell Distribution Width 12.6 % (12.1-15.1); White Blood Count 11.2 10^3/uL (4.0-10.0)
--- NOTE | 2021-06-09 05:52 | PC.NURSE ---
SHIFT SUMMARY Has had a good night. Rested for intervals. Is hoping to go home today. Says he feels more ready. Medicated X3 during night with po Hydrocodone for pain to right hip. Dressing to hip C&D. Good neurovascular checks. Has tremors which he says is from the Guillian [place] he has had. Taking fluids well and urinating well per urinal. Was to [facility] in the evening for large BM. BM was hard formed. Is on stool softeners and discussed maybe trying some prune juice
[2021-06-09 06:00] VITALS: PULSE 99
[2021-06-09 06:26] LABS: Blood Urea Nitrogen 12 mg/dL (6-20); Carbon Dioxide 23 mmol/L (22-29); Chloride 101 mmol/L (98-107); Glomerular Filtration Rate 176.7 mL/min (90-130); Glucose 100 mg/dL (65-115); Osmolality Calculated 278 mOsm/kg (285-295); Sodium 134 mmol/L (136-145)
[2021-06-09 06:27] LABS: Slide Review Slide Review Perform
[2021-06-09 06:30] LABS: Anion Gap 14.8 (5-19); Potassium 4.8 mmol/L (3.5-5.1)
[2021-06-09 06:35] LABS: D Dimer 3.08 ug/mIFEU (0-0.59)
[2021-06-09 07:24] VITALS: BP 143/93; PULSE 99; RESP 13; TEMP 37.1; O2SAT 94
--- NOTE | 2021-06-09 08:22 | PM.DCS ---
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 Immediately have right hip pain, not able to bear weight, was found to have a nondisplaced right hip fracture, Dr. Ramos has been consulted, team has been called for medical management. Hospital course Patient was admitted for management evaluation of right intertrochanteric hip fracture. Status post intervention by Dr. Ramos estimated blood loss 100ml. No postoperative complications. Patient carries history of the underway, he took some time to work with physical therapist however with use of opioids he was able to do so he remained tachycardic, D-dimer was requested. It was high, venous Doppler did not show any clot, CTA did not show any PE however 7 mm left-sided nodule and right hilar lymphadenopathy 11 mm noted. I told the patient and his that he needs to have another D-dimer and a CT scan as a follow-up. His sinus tachycardia was rebound tachycardia, l because he did not receive his verapamil throughout hospitalization. As soon as I started him on verapamil, blood pressure and heart rate improved. He was never hypoxic. Repeat D-dimer is 3.08. I have stressed the importance of repeat CT scan within 3 months, repeat D-dimer and follow-up with PCP. He did not show any signs of COVID-19 pneumonia. He remained afebrile. There was some oozing around the dressing which improved after 24 hours postop. His hemoglobin remained stable. At the time of discharge he was given prescription for CT scan, D-dimer, PT outpatient as he lives in [place] and we could not arrange home health services, was updated on daily basis. Of note, he is allergic to milk, he was put on a vegan diet. Opioids, bowel regimen prescribed 2 weeks follow-up with Dr. Ramos and patient are aware that he might need to see a mold shaker for his lung nodule and high D-dimer, he might benefit from a biopsy. All questions were answered to their satisfaction. He does have a walker, wheelchair at home Physical Exam Narrative: She is in good spirits, Euvolemic Sinus rhythm Tachycardia improved Swelling of right leg improved Dressing has been changed twice daily basis, at the time of evaluation it is not soaked with blood anymore EOMI, PERRLA No new focal deficits Abdomen is soft Discharge Data Studies Completed and Pending Completed Studies During Hospitalization Category Date Time Status CTA PE [CT angio chest PE protcl [id number]] Stat Cat Scan 06/08/21 07:27 Completed XR chest 1V portable [id number] Urgent Exams 06/04/21 02:03 Completed XR femur RT min 2V* [id number] Routine Exams 06/07/21 16:05 Completed XR hip RT 1V wo/w pel [id number] Routine Exams 06/06/21 12:07 Completed XR hip RT 2-3V wo/w pel* [id number] Routine Exams 06/04/21 Completed XR hip RT 2-3V wo/w pel* [id number] Stat Exams 06/04/21 01:24 Completed US venous duplex lower extremity bilat [CV venous Ultrasound 06/07/21 07:20 [place] [id number]] Routine Radiology Impressions Hip/Pelvis X-Ray 06/04/21 01:24 IMPRESSION: Comminuted intertrochanteric fracture right hip. Chest X-Ray 06/04/21 02:03 IMPRESSION: 1. Poor inspiratory effort with some crowding of pulmonary markings and possible accentuation of the apparent heart size. 2. Mild peribronchial thickening and/or mild perihilar linear markings consistent with bronchitis and/or viral pneumonitis and/or reactive airway disease and/or atypical pulmonary interstitial edema. Hip X-Ray 06/06/21 12:07 IMPRESSION: 1. ORIF of an intertrochanteric fracture of the right hip. Femur X-Ray 06/07/21 16:05 IMPRESSION: Recently placed right hip fixation device in expected positioning traversing an intertrochanteric right hip fracture. Chest CTA 06/08/21 07:27 IMPRESSION: 1. No pulmonary embolism. 2. 7 mm pulmonary nodule abuts the inferior LEFT major fissure and extends into the upper lobe. There are additional smaller benign appearing nodules along the fissure. The largest 7 mm nodule needs further evaluation. Recommend follow-up chest CT in 3-4 months with IV contrast to document stability. 3. Normal size heart. Laboratory Results WBC 11.2 10^3/uL (4.0-10.0) H 06/09/21 05:20 RBC 4.81 10^6/uL (4.1-5.3) 06/09/21 05:20 Hgb 14.2 g/dL (11.7-16.6) 06/09/21 05:20 Hct 44.8 % (42.0-52.0) 06/09/21 05:20 MCV 93.1 fl (80-94) 06/09/21 05:20 MCH 29.5 pg (28.0-34.0) 06/09/21 05:20 MCHC 31.7 g/dL (30.0-36.0) 06/09/21 05:20 RDW 12.6 % (12.1-15.1) 06/09/21 05:20 Plt Count 316 10^3/cmm (130-400) 06/09/21 05:20 MPV 10.1 fL (7.4-10.4) 06/09/21 05:20 Neut % (Auto) 63.5 % 06/09/21 05:20 Lymph % (Auto) 20.6 % 06/09/21 05:20 [place] % (Auto) 12.1 % 06/09/21 05:20 Eos % (Auto) 2.5 % 06/09/21 05:20 Baso % (Auto) 0.5 % 06/09/21 05:20 Neut # (Auto) 7.14 10^3/uL (1.8-7.7) 06/09/21 05:20 Lymph # (Auto) 2.3 10^3/uL (0.8-4.8) 06/09/21 05:20 [place] # (Auto) 1.4 10^3/uL (0.2-0.9) H 06/09/21 05:20 Eos # (Auto) 0.3 10^3/uL (0.0-0.8) 06/09/21 05:20 Baso # (Auto) 0.1 10^3/uL (0.0-0.1) 06/09/21 05:20 Nucleated RBC % (auto) 0 % 06/09/21 05:20 Nucleated RBCs # 0.0 /100WBC 06/09/21 05:20 D-Dimer 3.08 ug/mIFEU (0-0.59) H 06/09/21 05:20 Sodium 134 mmol/L (136-145) L 06/09/21 05:20 Potassium 4.8 mmol/L (3.5-5.1) 06/09/21 05:20 Chloride 101 mmol/L (98-107) 06/09/21 05:20 Carbon Dioxide 23 mmol/L (22-29) 06/09/21 05:20 Anion Gap 14.8 (5-19) 06/09/21 05:20 BUN 12 mg/dL (6-20) 06/09/21 05:20 Creatinine 0.5 mg/dL (0.7-1.2) L 06/09/21 05:20 GFR Calculation 176.7 mL/min (90-130) H 06/09/21 05:20 Glucose 100 mg/dL (65-115) 06/09/21 05:20 Estimat Average Glucose 103 06/04/21 05:44 Hemoglobin A1c 5.2 % (4.0-6.0) 06/04/21 05:44 Calculated Osmolality 278 mOsm/kg (285-295) L 06/09/21 05:20 Calcium 9.0 mg/dL (8.5-10.5) 06/09/21 05:20 Phosphorus 2.9 mg/dL (2.5-4.5) 06/05/21 04:52 Magnesium 2.0 mg/dL (1.7-2.3) 06/05/21 04:52 Total Bilirubin 0.9 mg/dL (0.15-1.2) 06/06/21 05:43 AST 18 U/L (0-40) 06/06/21 05:43 ALT 20 U/L (0-41) 06/06/21 05:43 Alkaline Phosphatase 85 IU/L (40-130) 06/06/21 05:43 Total Protein 6.8 g/dL (6.6-8.7) 06/06/21 05:43 Albumin 3.3 g/dL (3.5-5.2) L 06/06/21 05:43 Globulin 3.5 g/dL (1.3-4.6) 06/06/21 05:43 Triglycerides 121 mg/dL (0-150) 06/04/21 05:44 Cholesterol 174 mg/dL (0-200) 06/04/21 05:44 LDL Cholesterol, Calc 96 mg/dL (50-129) 06/04/21 05:44 HDL Cholesterol 54 mg/dL (60-100) L 06/04/21 05:44 LDL/HDL Ratio 1.78 RATIO (0.00-3.22) 06/04/21 05:44 Cholesterol/HDL Ratio 3.22 mg/dL (1.0-5.00) 06/04/21 05:44 25-OH Vitamin D Total 26 ng/mL (30-100) L 06/04/21 05:44 TSH 1.09 uIU/mL (0.27-4.20) 06/04/21 05:44 Vitals Last Vital Signs Temp 98.8 F 06/09/21 07:24 Pulse 99 06/09/21 07:24 Resp 13 06/09/21 07:24 BP 143/93 06/09/21 07:24 Pulse Ox 94 06/09/21 07:24 Discharge Plan Discharge Patient Disposition: Home Condition: Stable Prescriptions: New hydrocodone-acetaminophen 5-325 mg Tablet 1 - 2 tab PO Q4H PRN (Reason: Breakthrough Pain) Qty: 20 0RF docusate sodium 100 mg Capsule 100 mg PO BID Qty: 60 0RF Stool Softener-Laxative 8.6-50 mg Tablet 1 tab PO BID Qty: 20 0RF Eliquis 2.5 mg tablet 2.5 mg PO BID Qty: 28 0RF Continued verapamil 80 mg Tablet 80 mg PO BID 0RF Discharge Orders: Discharge Order (Routine); Ordered 06/09/21 Ordered By: Wesley Demarco Other Ambulatory Orders: CT chest wo con [id number] (Routine) Timeframe: 3 Months Location: Determined by Patient Ordered By: Wesley Demarco D Dimer (Routine) Timeframe: 3 Days Facility: [facility] - Location: Lab - Main Lab Ordered By: Wesley Demarco Physical Therapy Eval and Treat Outpatient (Order) Timeframe: 2 Months Facility: [facility] - Location: Physical Therapy Ordered By: Wesley Demarco Referrals: Coy Ramos DO [Physician] - 06/23/21 1:45 pm Scooby Varela MD [Primary Care Provider] - (Please call and make a follow up appointment with Dr. Varela at for 4-7 days after discharge.) Discharge Diet: Advance as tolerated Discharge Activity: Increase activity as tolerated Patient Instructions: Hydrocodone/Acetaminophen (By mouth), Laxative, Stool Softeners (By mouth) (Doculax, Colace, Colace Clear, DSS), Apixaban (By mouth), Guillain-[place] Syndrome (DC), Hip Fracture (ED), Tachycardia (GEN), Opioid Safety Activity Restrictions/Additional Instructions: You are being discharged from the hospital today during which time you have been under the care of Dr Ramos. You had a Right hip fracture. You were treated for this injury with IM nail. You may resume you normal diet (including any special diets as directed by your primary doctor) as well as your home medications. You should follow up with you primary doctor if you have any questions regarding medication you took prior to your stay in the hospital. You may take your pain medication as prescribed. After the first few days, take your pain medication as needed. Do not drive or drink alcohol while taking your pain medication. Your injury may increase your risk of developing a blood clot,or DVT, in your arm or leg. This could potentially dislodge and travel to your lungs and become a life threatening condition called apulmonary embolus,or PE. You have been prescribed eliquis to be taken to prevent this. Frequent movement of the legs will also help prevent this from occurring. If you develop any new or worsening cough, chestpain, bloody sputum or shortness of breath, call 911 or go to the EmergencyRoom. Always keep your surgical incision/dressing clean and dry. If you experience increasing pain at your incision site, redness, swelling, increasing discharge, foul odors, or fevers (greater than 100.4), night sweats or chills you should call the office at the above number. If you feel this is an emergency you should be evaluated in the Emergency Department of a nearby hospital. Orthopedic Patient Instructions Summary: Weight Bearing: WBAT Activity: as tolerated. Diet: regular. Wound Care: Keep dressing clean and dry. Change as needed Anticoagulation: Lovenox Pain Medication: Take only as needed. Ice, rest and elevation will be of great benefit. Please plan to follow-up erika Ramos in 2 weeks. You will need to call the clinic [phone] to schedule. Do not hesitate to call the office with any questions or concerns. 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
[2021-06-09] MEDS: sennosides-docusate Tablet 1 TAB PO (09:00)
[2021-06-09] MEDS: pantoprazole DR 40 mg Tablet PO (09:00)
[2021-06-09] MEDS: docusate sodium 100 mg Capsule PO (09:00)
--- NOTE | 2021-06-09 10:09 | PC.NURSE ---
Discharge teaching and education were given to patient and , all questions were answered at this time. Wound dressings supplies given to patient and education given how to do it. IVs discontinued. Vitals stable. Belongings are accounted for.
[2021-06-09 10:39] VITALS: BP 143/93; PULSE 99; RESP 13; TEMP 37.1; O2SAT 94
== END 2021-06-09 10:50 | disposition home or self-care (01) | DRG 481 ==
LOC: ER 06-04 03:01 → MEDSURG 06-04 03:16
PROVIDERS: Orthopaedic Surgery; Admitting Provider Family Medicine; Emergency Provider Emergency Medicine; PCP Student in an Organized Health Care Education/Training Program; Visit Provider Internal Medicine
PROC: 0QS606Z Reposition Right Upper Femur with Intramedullary Internal Fixation Device, Open Approach (ICD-10-PCS; CPT 27245; principal; 2021-06-04 09:30)
DX: S72.141A Displaced intertrochanteric fracture of right femur, initial encounter for closed fracture (principal); G61.0 Guillain-Barre syndrome; W01.0XXA Fall on same level from slipping, tripping and stumbling without subsequent striking against object, initial encounter; R00.0 Tachycardia, unspecified; R91.8 Other nonspecific abnormal finding of lung field; R59.0 Localized enlarged lymph nodes
CPT/HCPCS: 36415; 71045; 71275; 73501; 73502; 73552; 76000; 80048; 80053; 80061; 82306; 83036; 83735; 84100; 84443; 85025; 85378; 93005; 93970; 94664; 96372; 96374; 96375; 96376; 97110; 97162; 97166; 97530; 97535; 99285; C1713; C9113; J0360; J0690; J1170; J1650; J2270; J2370; J2405; J2704; J3010; J7030; Q9967

== ENCOUNTER → 2021-07-26 13:13 | Outpatient (BNVA) | payer BC, SELFPAY | PROVIDERS: PCP Student in an Organized Health Care Education/Training Program; Visit Provider Orthopaedic Surgery | DX: Z48.89 Encounter for other specified surgical aftercare (principal); S72.143A Displaced intertrochanteric fracture of unspecified femur, initial encounter for closed fracture; X58.XXXA Exposure to other specified factors, initial encounter | CPT/HCPCS: 73502 ==

== ENCOUNTER → 2021-09-06 15:33 | Outpatient (BNVA) | payer BC, SELFPAY | PROVIDERS: PCP Student in an Organized Health Care Education/Training Program; Visit Provider Orthopaedic Surgery | DX: S72.001A Fracture of unspecified part of neck of right femur, initial encounter for closed fracture (principal); X58.XXXA Exposure to other specified factors, initial encounter | CPT/HCPCS: 73502 ==